=== PATIENT | male | born 1945 | race Caucasian/White ===

== ENCOUNTER 2023-01-14 20:38 | Emergency (ER) | payer MEDICARE, BC ==
[2023-01-14] MEDS ORDERED: Silver Nitrate Applicator Each TOP ONE (21:44)
== END 2023-01-14 22:21 | disposition home or self-care (01) ==
LOC: JP.ED 20:38
DX: N50.1 Vascular disorders of male genital organs (principal); I10 Essential (primary) hypertension; Z79.899 Other long term (current) drug therapy
CPT/HCPCS: 99283